=== PATIENT | female | born 1965 | race Two or more races ===

== ENCOUNTER 2024-03-20 09:22 | Outpatient (REF) | payer OTHER, SELFPAY ==
--- NOTE | ~2024-03-20 | XR_ITS ---
CLINICAL HISTORY: SINUS PRESSURE 3 view sinuses Comparison: None Findings: The paranasal sinuses and mastoids appear well-aerated. No fluid level is identified. Bony nasal septum is midline. There are dental restorations. IMPRESSION: Paranasal sinuses appear clear. This document has been electronically signed by: Darnell Moon MD on 03/21/2024 03:47:13
[2024-03-20 13:13] LABS: MANUAL DIFF FLAG NO
[2024-03-20 13:25] LABS: Basophils Percent Auto 0.5 % (0-2); Eosinophils Absolute Auto 0.2 X10*3/uL (0.0-0.4); Hematocrit 42.2 % (37.0-47.0); Hemoglobin 13.7 g/dl (12.0-16.0); Imm Gran Abs Auto 0.01 X10*3/uL (0.00-0.03); Imm Gran Pct Auto 0.1 % (0.0-0.4); Lymphocytes Absolute Auto 2.2 X10*3/uL (1.2-4.9); Lymphocytes Percent Auto 28.4 % (20-40); Mean Corpuscular HGB Conc 32.5 g/dl (31.0-35.0); Mean Corpuscular Hemoglobin 30.9 pg (27.0-33.0); Mean Corpuscular Volume 95.3 fL (80.0-98.0); Mean Platelet Volume 10.5 fL (9.4-12.3); Monocytes Absolute Auto 0.7 X10*3/uL (0.1-1.2); Monocytes Percent Auto 8.4 % (2-11); Neutrophils Absolute Auto 4.7 x10*3/uL (2.0-8.3); Neutrophils Percent Auto 60.6 % (45-73); Platelet Count 402 X10*3/uL (160-400); Red Blood Count 4.43 X10*6/uL (4.20-5.50); White Blood Count 7.8 X10*3/uL (4.8-10.8)
[2024-03-20 14:13] LABS: Alanine Aminotransferase 16 U/L (0-31); Albumin Level 4.1 g/dL (3.5-5.0); Alkaline Phosphatase 92 U/L (39-117); Anion Gap 9 (12-20); Aspartate Amino Transferase 24 U/L (5-31); Bilirubin Total 0.3 mg/dL (0.0-1.0); Blood Urea Nitrogen 13 mg/dL (9-16); Carbon Dioxide 27 mmol/L (22-29); Chloride 108 mmol/L (96-108); Cholesterol 189 mg/dL (<200); Estimated Glomerular Filt Rate > 60; Glucose Fasting 79 mg/dL (60-99); HDL Cholesterol 64 mg/dL (>40); LDL Cholesterol Calculated 113 mg/dL (<100); Potassium 3.8 mmol/L (3.3-5.1); Sodium 140 mmol/L (135-145); Total Protein 8.3 g/dL (6.5-8.0); Triglycerides 61 mg/dL (<150)
== END 2024-03-20 09:23 | disposition home or self-care (01) ==
LOC: HO.HMGCX 09:22
PROVIDERS: PCP Internal Medicine; Visit Provider Internal Medicine
DX: Z00.00 Encounter for general adult medical examination without abnormal findings (principal); R53.83 Other fatigue; R09.81 Nasal congestion
CPT/HCPCS: 36415; 70220; 80053; 80061; 85025

== ENCOUNTER → 2024-03-20 09:41 | Outpatient (BNV) | payer OTHER, SELFPAY | PROVIDERS: PCP Internal Medicine; Visit Provider Radiology Diagnostic Radiology | DX: J34.89 Other specified disorders of nose and nasal sinuses (principal) | CPT/HCPCS: 70220 ==

== ENCOUNTER 2024-05-14 09:44 | Outpatient (AMB) | payer OTHER, SELFPAY ==
--- NOTE | 2024-05-14 09:51 | A.OFFPC_ITS ---
Vital Signs 05/14/24 09:54 Height 5 ft Weight 137 lb BMI 26.8 BP 126/70 Respiration 14 Pulse 72 Pulse Source Pulse Oximeter Temp 97.6 F Temp Source Temporal Artery Scan Pulse Oximetry (%) 98 Oxygen Delivery Method Room Air Intake Visit Reasons: establish care Chemical Treatment Operator Required: No Accompanied by: Self / Same As Patient Allergies naproxen Allergy (Mild, Verified 05/14/24 10:15) Palpitations Penicillins Adverse Reaction (Verified 05/14/24 10:15) Nausea and Vomiting Medication List - Last Reconciled 05/14/24 by Lorri Campos PA-C nitrofurantoin monohyd/m-cryst 100 mg (Macrobid) 100 mg PO Q12H 5 days Tobacco use date assessed: 05/14/24 Dental Screening Dental Screen Date: 05/14/24 Did you have a dental visit in the last 12 months?: No Did you have a dental problem in the last 6 months where you did not have access to dental care?: No HPI establish care HPI Details History of Present Illness The patient is a 58-year-old female presenting to establish care with a new provider. She moved to [place] from [place] about 4 years ago to facilitate medical care for her daughter with complex medical needs. 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 She reports an absence of recent preventive screenings, with her last mammogram and cervical cancer screening over six years ago. A past colonoscopy reported normal results but has not been recently repeated. 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 - Family: Takes care of a daughter with Elmer-Danlos syndrome and lupus. - Residency: Relocated from [place] to [facility] for her daughter's medical care plans to return to [place] or [place]. - Considers moving back to [place] or [facility] due to dissatisfaction with the move to [place]. Review of Systems - Genitourinary: Reports urinary frequen cy and urgency, cloudy urine - Denies fevers, Chills, CP, SOB, leg sw elling, abd pain, N/V/D, hematuria, flank or back pain. Physical Exam Appearance: Alert. Oriented X3. No acute distress. Head: Normal external exam. Normocephalic. Atraumatic. Eyes: Pupils are equal, round, and reactive to light. Extraocular movements intact. Conjunctiva and sclera normal. Eyelids normal. Ears: External auditory canal normal. Tympanic membranes normal. Throat: Pharynx normal. Uvula midline. Moist mucous membranes. Neck: Normal inspection. Neck supple. Full range of motion. Cardiovascular: Normal heart rate and rhythm. Heart sound normal. No murmurs noted. Pulses normal throughout. Respiratory: No respiratory distress. Painless inspiration. Breath sounds normal. No wheezes/rales/rhonchi noted. No accessory muscle usage noted or decreased air movement noted. Abdomen: Soft and nontender. Back: No costovertebral angle tenderness. Full range of motion noted. Skin: Skin warm and dry. Normal skin color. Normal skin turgor. No rashes/lesions/lacerations noted. Extremities: No lower extremity edema. Extremities exhibit normal range of motion. Extremities nontender. Neuro: Oriented X 3. No motor deficit. No sensory deficit. Reflexes normal. Results - Labs: CBC with normal white blood cell count; hemoglobin and hematocrit normal; platelet count slightly elevated at 402. - Cholesterol: Total cholesterol 189, tr iglycerides 61, LDL 113, HDL 40. - Total protein: 3.8. [facility] Medical History (Updated 05/14/24 @ 14:25 by Lorri Campos PA-C) Cervical cancer screening Hyperlipidemia Overweight with body mass index (BMI) of 26 to 26.9 in adult Colon cancer screening Breast cancer screening UTI (urinary tract infection) Family history of lupus anticoagulant disorder Dysuria Establishing care with new doctor, encounter for Hugo thyroiditis Family History Mother No problems noted. Father Kidney failure High blood pressure High cholesterol Social History Housing: Apartment Alcohol intake: current Alcohol intake frequency: holidays/special occasions only Patient Tobacco Use Status: Never used Tobacco service: No Current occupational status: employed Cognitive needs: No Hearing needs: No Vision needs: Yes (reading glasses) Questionnaire PHQ-9 Over the last 2 weeks, how often have you been bothered by any of the following problems? 1. Little interest or pleasure in doing things: not at all 2. Feeling down, depressed, or hopeless: not at all 3. Trouble falling or staying asleep, or sleeping too much: not at all 4. Feeling tired or having little energy: not at all 5. Poor appetite or overeating: not at all 6. Feeling bad about yourself - or that you are a failure or have let yourself or your family down: not at all 7. Trouble concentrating on things, such as reading the newspaper or watching television: not at all 8. Moving or speaking so slowly that other people could have noticed. Or the opposite - being so fidgety or restless that you have been moving around a lot more than usual: not at all 9. Thoughts that you would be better off or of hurting yourself in some way: not at all Total score: 0 Depression Screening Interpretation: Negative Depression Screening Done: Yes 67596 - PHQ-9 Billing: Yes Source: Developed by Drs. Julián Blake, Gricelda Wayne, Stoney Lomax and colleagues, with an educational sharyn from [employer]. Thrive Questionnaire Date Thrive assessed: 05/14/24 I am a: Patient What is your living situation today?: I have a steady place to live Within the past 12 months, did the food you bought not last and you didn't have the money to get more?: Never true Within the past 12 months, did you worry whether your food would run out before you got money to buy more?: Never true Do you have trouble paying for medicines?: No Do you have trouble getting transportation to medical appointments?: No Do you have trouble paying your heating and electricity bill?: No Do you have trouble taking care of your child, family member or friend?: No Do you have trouble with day-to-day activities such as bathing, preparing meals, shopping, managing finances, etc.?: No Are you currently unemployed and looking for a job?: No Are you interested in more education?: No Please select the resources that you would like help with: None THRIVE Score: 0 AUDIT C Alcohol Use Questionnaire (AUDIT-C) 1. How often do you have a drink containing alcohol?: Monthly or less 2. How many drinks containing alcohol do you have on a typical day when you are drinking?: 1 or 2 3. How often do you have six or more drinks on one occasion?: Never Total Score: 1 Score Reviewed/Action Taken: No JAMEEL-7 AMB Questionnaire JAMEEL-7 Date JAMEEL - 7 assessed: 05/14/24 Feeling nervous, anxious, or on edge: 1 = Several days Not being able to stop or control worryin = Not at all Worrying too much about different things: 3 = Nearly every day Trouble relaxin = Nearly every day Being so restless that it is hard to sit still: 3 = Nearly every day Becoming easily annoyed or irritable: 1 = Several days Feeling afraid as if something awful might happen: 0 = Not at all Total JAMEEL-7 score (0-4 normal; 5-9 mild; 10-14 moderate; 15-21 severe): 11 Source: Developed by Drs. Julián Blake, Gricelda Wayne, Stoney Lomax and colleagues, with an educational sharyn from [employer]. JAMEEL-7 Assessment Billing JAMEEL-7 Assessment Tool: JAMEEL-7 Assessment 35672 Physical exam (Primary Care) Vital Signs: Last Vital Signs Temp 97.6 F 05/14/24 09:54 Pulse 72 05/14/24 09:54 Resp 14 05/14/24 09:54 BP 126/70 05/14/24 09:54 Pulse Ox 98 05/14/24 09:54 Oxygen Delivery Method Room Air 05/14/24 09:54 Care Plan Goal for BP management: <130/90 BMI result Body Mass Index 26.8 BMI Assessment/Plan discussion: High BMI High, discussed plan: lifestyle, weight reduction, dietary, physical activity, alcohol moderation and other Tobacco/Smoking Status: Tobacco use Status Tobacco use date assessed 05/14/24 05/14/24 10:06 Patient Tobacco Use Status Never used Tobacco 05/14/24 10:06 PHQ-9: PHQ-9 Score PHQ-9: Total score 0 05/14/24 10:17 Depression Screening Interpretation: Negative Thrive Assessment: Date of Thrive Assessment Date Thrive assessed 05/14/24 05/14/24 10:06 Coding Level of Care Code New Pt Level 4 (27454) Complex EM visit Add On G2211 Diagnoses Establishing care with new doctor, encounter for Z76.89 Hugo thyroiditis E06.3 Family history of lupus anticoagulant disorder Z83.2 UTI (urinary tract infection) N39.0 Breast cancer screening Z12.39 Colon cancer screening Z12.11 Cervical cancer screening Z12.4 Hyperlipidemia E78.5 Overweight with body mass index (BMI) of 26 to 26.9 in adult E66.3; Z68.26 Additional Codes JAMEEL-7 Assessment Billing - JAMEEL-7 Assessment Tool: JAMEEL-7 Assessment 66665 ([id number]) PHQ-9 - 11307 - PHQ-9 Billing: Yes ([id number]) Assessment & Plan Assessment & Plan (1) Establishing care with new doctor, encounter for: Code(s): Z76.89 - Persons encountering health services in other specified circumstances Category: Medical Plan: Will obtain medical records from Dr. Kayli hayden previous provider after lapse of PCP care. (2) Hugo thyroiditis: Code(s): E06.3 - Autoimmune thyroiditis Category: Medical Plan: Will assess TSH and additional labs. Condition is chronic and stable. (3) Family history of lupus anticoagulant disorder: Code(s): Z83.2 - Family history of diseases of the blood and blood-forming organs and certain disorders involving the immune mechanism Category: Medical Plan: Blood work ordered to assess due to Daughter with Hx of Lupus. Per Patient request. (4) UTI (urinary tract infection): Code(s): N39.0 - Urinary tract infection, site not specified Category: Medical Plan: Patient started on Macrobid BID 5 days. Pending UA and urine culture. (5) Breast cancer screening: Code(s): Z12.39 - Encounter for other screening for malignant neoplasm of breast Category: Medical Plan: Referral placed for Breast cancer screening by mammogram. (6) Colon cancer screening: Code(s): Z12.11 - Encounter for screening for malignant neoplasm of colon Category: Medical Plan: Referral placed for Colon Cancer screening. Re (7) Cervical cancer screening: Code(s): Z12.4 - Encounter for screening for malignant neoplasm of cervix Plan: Referral placed for Cervical cancer screening. (8) Hyperlipidemia: Code(s): E78.5 - Hyperlipidemia, unspecified Category: Medical Plan: Patient to improve Diet and exercise. Declining statin therapy at this time. (9) Overweight with body mass index (BMI) of 26 to 26.9 in adult: Code(s): E66.3 - Overweight; Z68.26 - Body mass index [BMI] 26.0-26.9, adult Category: Medical Plan: Patient to improve Diet and exercise. Plan Plan Patient was informed and verbally consented to the use of an ambient scribe for clinic note documentation during this visit. 1. Recurrent Urinary Tract Infections Consider lifestyle evaluation and possible interventions to address recurrent urinary tract infection risk factors. 3. Incomplete Preventive Screenings Schedule essential preventive tests, including a mammogram, cervical cancer screening, and colonoscopy, to provide comprehensive care. 5. Allergy To Penicillins This allergy, characterized by nausea and vomiting, has guided the selection of antibiotic therapy. Education on allergy management and alternatives has been provided to the patient. Discussion Notes During the consultation, I explained to the patient that her symptoms are consistent with a urinary tract infection, and we discussed initiating nitrofurantoin, an antibiotic she has tolerated in the past, given her penicillin allergy history. The potential side effects of nitrofurantoin, including gastrointestinal discomfort, were explained, and she was advised to contact the clinic if she experiences any adverse effects or if her symptoms persist. We also verified her allergy to penicillins and confirmed the absence of anaphylactic reactions, ensuring that nitrofurantoin was a suitable choice. The importance of completing the antibiotic course was emphasized, and a follow- up was recommended to evaluate her response to the treatment. Orders: Orders UA CC w/rflx Micro + Cult Today R30.0 - Dysuria TSH reflex Free T4 Today Z00.00 - Encounter for general adult medical examination without abnormal findings Phosphorus Today Z00.00 - Encounter for general adult medical examination without abnormal findings Hemoglobin A1c Today Z00.00 - Encounter for general adult medical examination without abnormal findings MM screening mammo BI Today Z12.31 - Encounter for screening mammogram for m alignant neoplasm of breast Parathyroid Hormone Intact Today Z00.00 - Encounter for general adult medical examination without abnormal findings Vitamin B12 and Folate Today Z00.00 - Encounter for general adult medical examination without abnormal findings Vitamin D 25-OH Total Today Z00.00 - Encounter for general adult medical examination without abnormal findings GABBY Reflex Titer and Pattern Today Z83.2 - Family history of diseases of the blood and blood-forming organs and certain disorders involving the immune mechanism Referrals RIP SAW OPERATOR Referral Z12.4 - Encounter for screening for malignant neoplasm of cervix Gastroenterology Referral Z12.11 - Encounter for screening for malignant neoplasm of colon Medications: New nitrofurantoin monohyd/m-cryst 100 mg (Macrobid) must administer with a meal/food 100 mg PO Q12H 5 days 10 caps 0RF Patient Instructions: Patient Instructions - Complete the full course of nitrofurantoin as prescribed, even if you start feeling better. - Monitor your symptoms. If urinary symptoms do not improve or if they worsen, please contact the clinic. - Be aware of potential side effects such as nausea or gastrointestinal upset while taking nitrofurantoin. - Avoid penicillin or any medications to which you have had allergic reactions. - Schedule a follow-up appointment to assess response to medication and ensure resolution of symptoms.
[2024-05-14 09:54] VITALS: BP 126/70; PULSE 72; RESP 14; TEMP 36.4; O2SAT 98; BMI 26.8
== END 2024-05-14 10:35 | disposition home or self-care (01) ==
LOC: HO.HMCSH 09:44
PROVIDERS: PCP Internal Medicine; Visit Provider Physician Assistant Medical
DX: Z76.89 Persons encountering health services in other specified circumstances (principal); E06.3 Autoimmune thyroiditis; Z83.2 Family history of diseases of the blood and blood-forming organs and certain disorders involving the immune mechanism; N39.0 Urinary tract infection, site not specified; Z12.39 Encounter for other screening for malignant neoplasm of breast; Z12.11 Encounter for screening for malignant neoplasm of colon; Z12.4 Encounter for screening for malignant neoplasm of cervix; E78.5 Hyperlipidemia, unspecified; E66.3 Overweight; Z68.26 Body mass index [BMI] 26.0-26.9, adult

== ENCOUNTER → 2024-05-14 09:44 | Outpatient (BNVA) | payer OTHER, SELFPAY | PROVIDERS: PCP Internal Medicine; Visit Provider Physician Assistant Medical | DX: E06.3 Autoimmune thyroiditis (principal); N39.0 Urinary tract infection, site not specified; E78.5 Hyperlipidemia, unspecified; E66.3 Overweight; Z68.26 Body mass index [BMI] 26.0-26.9, adult; Z71.3 Dietary counseling and surveillance; Z76.89 Persons encountering health services in other specified circumstances; Z83.2 Family history of diseases of the blood and blood-forming organs and certain disorders involving the immune mechanism | CPT/HCPCS: 96127; 99202 ==

== ENCOUNTER 2024-05-17 13:36 | Outpatient (REF) | payer OTHER, SELFPAY ==
[2024-05-17 16:05] LABS: Appearance Urine Turbid; Color Urine Yellow; Glucose Urine UA Negative (Negative); Leukocyte Esterase Urine Large (3+) (Negative); Nitrite Urine Negative (Negative); PH 5.5 (5.0-9.0); Specific Gravity - Urine 1.025 (1.005-1.025); UMIC TRIGGER UACC YES; Urine Blood Moderate (2+) (Negative); Urine Ketones Trace mg/dL (Negative); Urine Protein Trace mg/dL (Neg-Trace)
[2024-05-17 16:18] LABS: Estimated Average Glucose 111 mg/dL; Hemoglobin A1C 124.2577 umol/L; Hemoglobin A1c % 5.5 % (<6.0); Total Hemoglobin (HGBA1C) 3435.7523 umol/L
[2024-05-17 16:23] LABS: Bacteria Urine 3+ (None Seen); Hyaline Casts Urine 0-2 /LPF (0-2); Squamous Epithelial Cell Urine 0-2 /HPF (0-2); UACC Culture Trigger YES; WBC Clumps Urine Present; WBC Urine 21-50 /HPF (0-5)
[2024-05-17 16:38] LABS: Phosphorus 3.4 mg/dL (2.7-4.5)
[2024-05-17 16:57] LABS: TSH reflex Free T4 6.53 uIU/mL (0.32-4.0); Vitamin D 25-OH Total 31.2 ng/mL (>30)
[2024-05-17 17:13] LABS: Folate 13.1 ng/mL (> or = 4.0); Vitamin B12 410 pg/mL (200-900)
[2024-05-17 19:04] LABS: Free T4 (Free Thyroxine) 0.84 ng/dL (0.71-1.85)
[2024-05-22 11:34] LABS: Anti Nuclear Antibody Screen NEGATIVE (NEGATIVE)
== END 2024-05-17 13:37 | disposition home or self-care (01) ==
LOC: HO.HMGCLDS 13:36
PROVIDERS: PCP Physician Assistant Medical; Visit Provider Physician Assistant Medical
DX: Z00.00 Encounter for general adult medical examination without abnormal findings (principal); Z83.2 Family history of diseases of the blood and blood-forming organs and certain disorders involving the immune mechanism
CPT/HCPCS: 36415; 81001; 81003; 82306; 82607; 82746; 83036; 84100; 84439; 84443; 86038; 87086; 87088; 87186

== ENCOUNTER 2024-06-12 09:54 | Outpatient (REF) | payer OTHER, SELFPAY ==
[2024-06-12 13:31] LABS: Appearance Urine Clear; Color Urine Yellow; Glucose Urine UA Negative (Negative); Leukocyte Esterase Urine Negative (Negative); Nitrite Urine Negative (Negative); PH 7.5 (5.0-9.0); Urine Blood Negative (Negative); Urine Ketones Negative (Negative); Urine Protein Negative (Neg-Trace)
[2024-06-12 14:30] LABS: Parathyroid Hormone Intact 45.7 pg/mL (8.7-77.1)
== END 2024-06-12 09:55 | disposition home or self-care (01) ==
LOC: HO.HMGCLDS 09:54
PROVIDERS: PCP Physician Assistant Medical; Visit Provider Physician Assistant Medical
DX: E03.9 Hypothyroidism, unspecified (principal); Z79.899 Other long term (current) drug therapy; Z00.00 Encounter for general adult medical examination without abnormal findings; R30.0 Dysuria
CPT/HCPCS: 36415; 81003; 83970; 96127; 99212

== ENCOUNTER 2024-06-12 09:54 | Outpatient (AMB) | payer OTHER, SELFPAY ==
--- NOTE | 2024-06-12 09:58 | A.OFFPC_ITS ---
Vital Signs 06/12/24 10:00 Height 5 ft Weight 137 lb 2 oz BMI 26.8 BP 115/60 Blood Pressure Location Rt brachial Pulse 72 Pulse Source Pulse Oximeter Temp 97.4 F Pulse Oximetry (%) 100 Intake Visit Reasons: 1 month follow up Intake Note: no issues Allergies naproxen Allergy (Mild, Verified 06/12/24 10:33) Palpitations Penicillins Adverse Reaction (Verified 06/12/24 10:33) Nausea and Vomiting Medication List - Last Reconciled 06/12/24 by Lorri Campos PA-C levothyroxine 50 mcg PO DAILY 6 weeks Tobacco use date assessed: 05/14/24 Dental Screening Dental Screen Date: 05/14/24 HPI 1 month follow up HPI Details The patient is a 58-year-old female presenting with hypothyroidism for follow-up. Her condition was identified by an elevated TSH of 6.53 with normal free T4 levels, for which she is on levothyroxine 50 mcg. The patient notes improved energy levels since the medication adjustment, remediating severe fatigue episodes previously experienced. Additionally, she requires documentation for her vaccinations, having completed Hepatitis A and imminently receiving Hepatitis B. She seeks a certification verifying her vaccination status without reference to her thyroid condition. Furthermore, she is exploring alternatives to timely secure an LICENSED MASSAGE THERAPIST appointment, facing scheduling challenges within her initial plan. Social History - Family status: Caring for a daughter. - Recent travel and vacation planned; [facility] vaccination documentation for travel preparation. [facility] Medical History (Updated 06/12/24 @ 10:38 by Lorri Campos PA-C) Hypothyroidism (acquired) Cervical cancer screening Hyperlipidemia Overweight with body mass index (BMI) of 26 to 26.9 in adult Colon cancer screening Breast cancer screening UTI (urinary tract infection) Family history of lupus anticoagulant disorder Dysuria Establishing care with new doctor, encounter for Hugo thyroiditis Family History Mother No problems noted. Father Kidney failure High blood pressure High cholesterol Social History Housing: Apartment Alcohol intake: current Alcohol intake frequency: holidays/special occasions only Patient Tobacco Use Status: Never used Tobacco service: No Current occupational status: employed Cognitive needs: No Hearing needs: No Vision needs: Yes (reading glasses) Questionnaire PHQ-9 Over the last 2 weeks, how often have you been bothered by any of the following problems? 1. Little interest or pleasure in doing things: not at all 2. Feeling down, depressed, or hopeless: not at all 3. Trouble falling or staying asleep, or sleeping too much: not at all 4. Feeling tired or having little energy: not at all 5. Poor appetite or overeating: not at all 6. Feeling bad about yourself - or that you are a failure or have let yourself or your family down: not at all 7. Trouble concentrating on things, such as reading the newspaper or watching television: not at all 8. Moving or speaking so slowly that other people could have noticed. Or the opposite - being so fidgety or restless that you have been moving around a lot more than usual: not at all 9. Thoughts that you would be better off or of hurting yourself in some way: not at all Total score: 0 Depression Screening Interpretation: Negative Depression Screening Done: Yes [id number] - PHQ-9 Billing: Yes Source: Developed by Drs. Julián Blake, Gricelda Wayne, Stoney Lomax and colleagues, with an educational sharyn from [employer]. Thrive Questionnaire Date Thrive assessed: 05/14/24 I am a: Patient What is your living situation today?: I have a steady place to live Within the past 12 months, did the food you bought not last and you didn't have the money to get more?: Never true Within the past 12 months, did you worry whether your food would run out before you got money to buy more?: Never true Do you have trouble paying for medicines?: No Do you have trouble getting transportation to medical appointments?: No Do you have trouble paying your heating and electricity bill?: No Do you have trouble taking care of your child, family member or friend?: No Do you have trouble with day-to-day activities such as bathing, preparing meals, shopping, managing finances, etc.?: No Are you currently unemployed and looking for a job?: No Are you interested in more education?: No Please select the resources that you would like help with: None THRIVE Score: 0 AUDIT C Alcohol Use Questionnaire (AUDIT-C) 1. How often do you have a drink containing alcohol?: Monthly or less 2. How many drinks containing alcohol do you have on a typical day when you are drinking?: 1 or 2 3. How often do you have six or more drinks on one occasion?: Never Total Score: 1 Score Reviewed/Action Taken: No JAMEEL-7 AMB Questionnaire JAMEEL-7 Date JAMEEL - 7 assessed: 05/14/24 Feeling nervous, anxious, or on edge: 1 = Several days Not being able to stop or control worryin = Not at all Worrying too much about different things: 3 = Nearly every day Trouble relaxin = Nearly every day Being so restless that it is hard to sit still: 3 = Nearly every day Becoming easily annoyed or irritable: 1 = Several days Feeling afraid as if something awful might happen: 0 = Not at all Total JAMEEL-7 score (0-4 normal; 5-9 mild; 10-14 moderate; 15-21 severe): 11 Source: Developed by Drs. Julián Blake, Gricelda Wayne, Stoney Lomax and colleagues, with an educational sharyn from [employer]. JAMEEL-7 Assessment Billing JAMEEL-7 Assessment Tool: JAMEEL-7 Assessment 42819 Review of Systems Const Details: - Endocrine: Reports improved energy levels after levothyroxine dose adjustment. - General: Denies feeling significantly tired, no issues post medication adjustment. Physical exam (Primary Care) Vital Signs: Last Vital Signs Temp 97.4 F 06/12/24 10:00 Pulse 72 06/12/24 10:00 BP 115/60 06/12/24 10:00 Pulse Ox 100 06/12/24 10:00 Care Plan Goal for BP management: <130/90 at Goal BMI result Body Mass Index 26.8 BMI Assessment/Plan discussion: High BMI High, discussed plan: lifestyle, weight reduction, dietary, physical activity and alcohol moderation Tobacco/Smoking Status: Tobacco use Status Tobacco use date assessed 05/14/24 06/12/24 09:59 Patient Tobacco Use Status Never used Tobacco 06/12/24 09:59 PHQ-9: PHQ-9 Score PHQ-9: Total score 0 06/12/24 10:09 Depression Screening Interpretation: Negative Thrive Assessment: Date of Thrive Assessment Date Thrive assessed 05/14/24 06/12/24 09:59 Const Other: Appearance: Alert. Oriented X3. No acute distress. Head: Normal external exam. Normocephalic. Atraumatic. Eyes: Pupils are equal, round, and reactive to light. Extraocular movements intact. Conjunctiva and sclera normal. Eyelids normal. Throat: Pharynx normal. Uvula midline. Moist mucous membranes. Neck: Normal inspection. Neck supple. Full range of motion. Cardiovascular: Normal heart rate and rhythm. Respiratory: No respiratory distress. Painless inspiration. Back: Full range of motion noted. Skin: Skin warm and dry. Normal skin color. Normal skin turgor. No rashes/lesions/lacerations noted. Extremities: Extremities exhibit normal range of motion. Neuro: Oriented X 3. No motor deficit. No sensory deficit. Reflexes normal. Results Reviewed Results Reviewed: - Labs: Previously reported TSH level of 6.53 with normal free T4. Coding Level of Care Code Est Pt Level 4 (10825) Complex EM visit Add On G2211 Diagnoses Cervical cancer screening Z12.4 Hypothyroidism (acquired) E03.9 Additional Codes JAMEEL-7 Assessment Billing - JAMEEL-7 Assessment Tool: JAMEEL-7 Assessment 65427 ([id number]) PHQ-9 - 04452 - PHQ-9 Billing: Yes ([id number]) Assessment & Plan Assessment & Plan (1) Cervical cancer screening: Code(s): Z12.4 - Encounter for screening for malignant neoplasm of cervix Category: Medical Plan: Will refer patient to [facility] as [facility] had a wait time for October and patient is planning to move out of [facility] on 08/29/2024. (2) Hypothyroidism (acquired): Code(s): E03.9 - Hypothyroidism, unspecified Category: Medical Plan: Patient instructed to have her TSH with free T4 drawn today to ensure that the levothyroxine 50 mcg that she is currently on is at an appropriate dose. Condition is chronic and stable continue to monitor. Plan Plan Patient was informed and verbally consented to the use of an ambient scribe for clinic note documentation during this visit. 1. Hypothyroidism The patient is effectively managed on levothyroxine, with plans to reassess TSH without needing fasting. 2. Need For Vaccination Documentation Preparation of health certification confirming vaccination and health status is in process to satisfy travel requisites. 3. Thyroid Disorder Continue current medical regimen; monitoring of thyroid function tests underway. 4. Need For Warranty Clerk Consultation The patient received guidance to procure an LICENSED MASSAGE THERAPIST appointment at an alternate facility, given the initially dense schedule. We discussed the patient's current management of hypothyroidism with levothyroxine, acknowledging her improved symptoms. I assured her of the safety in obtaining her thyroid labs without fasting. For her upcoming travel, we agreed on the necessity of a document that certifies her as healthy and vaccinated, adhering to her preference not to disclose her thyroid condition in the certification. We also considered her options for obtaining a timely LICENSED MASSAGE THERAPIST appointment, with a suggestion to pursue alternate local providers for sooner consultation. Orders: Referrals LICENSED MASSAGE THERAPIST Referral Z12.4 - Encounter for screening for malignant neoplasm of cervix Patient Instructions: - Continue taking levothyroxine as prescribed. - Get blood work done without the need for fasting. - Coordinate receipt of travel health certification. - Contact [facility] for an LICENSED MASSAGE THERAPIST appointment as soon as possible. - Follow up in August or as advised based on test results. - Inform us if symptoms worsen or if any new concerns arise.
[2024-06-12 10:00] VITALS: BP 115/60; PULSE 72; TEMP 36.3; O2SAT 100; BMI 26.8
== END 2024-06-12 10:31 | disposition home or self-care (01) ==
LOC: HO.HMCSH 09:54
PROVIDERS: PCP Physician Assistant Medical; Visit Provider Physician Assistant Medical
DX: Z12.4 Encounter for screening for malignant neoplasm of cervix (principal); E03.9 Hypothyroidism, unspecified